=== PATIENT | female | born 1975 | race Caucasian/White ===

== ENCOUNTER 2019-12-30 17:30 | Emergency (ER) | payer BC, MEDICAID ==
[~2019-12-30] VITALS: Ht 170.2 cm; Wt 93.6 kg
[~2019-12-30 17:30] MED LIST: ALBU6.7H9 INH; CLON-527 PO; FLUO20CA39 PO; INSU100V36 SQ; LABE100T5 PO; LEVO50TA67 PO; LIDOcaine 1% W/epiNEPHrine 1:100,000 20ml vial ONE; LORA-512 PO; METF-436 PO; METF-900 PO; NPH,100V SQ; PREN-55 PO; QUIN10TA PO; QUIN20TA29 PO; TRAZ-91 PO; ZOLP10TA5 PO; ZOLP5TAB8 PO
--- NOTE | 2019-12-30 18:41 | NUR ---
Patient is pending I&D of abscess.
[2019-12-30] MEDS ORDERED: cephalexin 250mg capsule PO ONE (19:20)
[2019-12-30] MEDS ORDERED: traMADol 50MG tablet PO ONE (19:20)
[2019-12-30] MEDS ORDERED: sulfamethoxazole/trimethoprim DS (800/160mg) tablet PO ONE (19:20)
[2019-12-30] MEDS ORDERED: SULF1TAB49 PO (19:39)
[2019-12-30] MEDS ORDERED: TRAM50TA2 PO (19:39)
[2019-12-30] MEDS ORDERED: CEPH500C5 PO (19:39)
[2019-12-30 19:48] VITALS: BP 136/74
== END 2019-12-30 19:40 | disposition home or self-care (01) ==
LOC: ER 17:31
DX: L02.31 Cutaneous abscess of buttock (principal); I10 Essential (primary) hypertension; J45.909 Unspecified asthma, uncomplicated; E11.9 Type 2 diabetes mellitus without complications; G89.29 Other chronic pain; F31.9 Bipolar disorder, unspecified; Z98.890 Other specified postprocedural states; Z79.2 Long term (current) use of antibiotics; Z88.8 Allergy status to other drugs, medicaments and biological substances; Z79.4 Long term (current) use of insulin; Z79.899 Other long term (current) drug therapy
CPT/HCPCS: 10060; 87070; 87077; 87186; 99284

== ENCOUNTER 2020-01-02 17:01 | Emergency (ER) | payer BC, MEDICAID ==
[~2020-01-02] VITALS: Ht 170.2 cm; Wt 97.0 kg
[~2020-01-02 17:01] MED LIST changes: +CEPH500C5 PO; -LIDOcaine 1% W/epiNEPHrine 1:100,000 20ml vial ONE; +SULF1TAB49 PO; +TRAM50TA2 PO
--- NOTE | 2020-01-02 20:46 | NUR ---
DRESSING REMOVED BY PIO VASQUEZ . ABCESS PACKING REMOVED BY PIO VASQUEZ . THIS RECORDER SHADOWED ASSESSMENT.
[2020-01-02 21:14] VITALS: BP 158/62
== END 2020-01-02 21:17 | disposition home or self-care (01) ==
LOC: ER 17:01
DX: L02.31 Cutaneous abscess of buttock (principal); I10 Essential (primary) hypertension; J45.909 Unspecified asthma, uncomplicated; E11.9 Type 2 diabetes mellitus without complications; G89.29 Other chronic pain; F31.9 Bipolar disorder, unspecified; Z90.49 Acquired absence of other specified parts of digestive tract; Z48.00 Encounter for change or removal of nonsurgical wound dressing; Z98.890 Other specified postprocedural states; Z88.8 Allergy status to other drugs, medicaments and biological substances; Z79.2 Long term (current) use of antibiotics; Z79.899 Other long term (current) drug therapy; Z79.4 Long term (current) use of insulin
CPT/HCPCS: 99281